=== PATIENT | female | born 1930 | race Caucasian/White ===

== ENCOUNTER 2017-12-01 11:48 | Inpatient (IN) | payer MEDICARE, OTHER ==
[~2017-12-01] VITALS: Ht 152.4 cm; Wt 63.2 kg
[2017-12-01 12:49] LABS: BASOPHILS # (AUTO) 0.02 x10^3/uL (0-0.1); BASOPHILS % (AUTO) 0 % (0-1); EOSINOPHILS % (AUTO) 0 % (1-7); LYMPHOCYTES # (AUTO) 0.78 x10^3/uL (1-3.4); LYMPHOCYTES % (AUTO) 5 % (22-44); MD NO; MEAN CORPUSCULAR HGB CONC 33.6 g/dL (32.4-35.8); MEAN CORPUSCULAR VOLUME 86.4 fL (80-100); MEAN PLATELET VOLUME 7.7 fL (7.4-10.4); MONOCYTES # (AUTO) 1.04 x10^3/uL (0.2-0.8); MONOCYTES % (AUTO) 7 % (2-9); NEUTROPHILS # (AUTO) 13.67 x10^3/uL (1.8-6.8); NEUTROPHILS % (AUTO) 88 % (42-75); PLATELET COUNT 225 x10^3/uL (130-400); RED BLOOD COUNT 4.96 x10^6/uL (3.82-5.3); RED CELL DISTRIBUTION WIDTH 14.4 % (9.6-15.2)
[2017-12-01] MEDS ORDERED: ONDANSETRON 2MG/ML, 2ML ONE (12:49)
[2017-12-01] MEDS ORDERED: MORPHINE SULFATE 4 MG/ML, 1ML ONE (12:50)
[2017-12-01] MEDS ORDERED: KETOROLAC 30 MG/1 ML ONE (12:50)
[2017-12-01 12:55] LABS: PROTHROMBIN TIME 10.4 Seconds (9.6-11.5)
[2017-12-01 12:58] LABS: ALANINE AMINOTRANSFERASE 18 U/L (12-78); ALBUMIN 3.4 g/dL (3.4-5.0); ANION GAP 5 mmol/L (5-15); CALCIUM 8.6 mg/dL (8.5-10.1); CHLORIDE 100 mmol/L (98-107); CREATININE 1.35 mg/dL (0.55-1.02)
[2017-12-01 13:00] LABS: ALKALINE PHOSPHATASE 74 U/L (45-117); BILIRUBIN,TOTAL 0.8 mg/dL (0.2-1.0); TOTAL PROTEIN 7.7 g/dL (6.4-8.2)
[2017-12-01] MEDS ORDERED: SODIUM CHLORIDE FLUSH 10ML SYR IVF ONE (13:00)
[2017-12-01] MEDS ORDERED: BENA1TAB11 PO (13:35)
[2017-12-01] MEDS ORDERED: SODIUM CHLORIDE 0.9% 1,000ML IVBOLUS ONE (14:00)
[2017-12-01] MEDS ORDERED: AMPICILLIN/SULBACTAM 3 GM in SODIUM CHLORIDE 0.9% 100 ML IV ONE (14:30)
[2017-12-01] MEDS ORDERED: POLYETHYLENE GLYCOL 17 GM PACKET PO PRN (15:00)
[2017-12-01] MEDS ORDERED: ONDANSETRON ODT 4 MG PO PRN (15:00)
[2017-12-01] MEDS ORDERED: VANCOMYCIN PER PHARMACY MC PRN (15:00)
[2017-12-01] MEDS ORDERED: ACETAMINOPHEN 325 MG TABLET PO PRN (15:00)
[2017-12-01] MEDS ORDERED: DOCUSATE 100 MG CAPSULE PO PRN (15:00)
[2017-12-01] MEDS: AMPICILLIN/SULBACTAM 3 GM in SODIUM CHLORIDE 0.9% 100 ML IV SCH (15:10)
[2017-12-01] MEDS ORDERED: ACETAMINOPHEN 325 MG TABLET ONE (15:18)
[2017-12-01 15:22] LABS: HCT (SEDRATE) 42.9 % (34.6-47.8)
[2017-12-01] MEDS ORDERED: BENAZEPRIL 20 MG TABLET PO SCH (16:05)
[2017-12-01] MEDS ORDERED: PHARMACOKINETIC MONITORING MC PRN (16:30)
[2017-12-01] MEDS ORDERED: PHARMACOKINETIC CONSULTATION MC ONE (16:30)
[2017-12-01] MEDS ORDERED: VANCOMYCIN 1,200 MG in SODIUM CHLORIDE 0.9% 250 ML IV SCH (16:30)
[2017-12-01] MEDS: ENOXAPARIN 30 MG/0.3 ML SQ SCH (16:58)
[2017-12-01 18:40] VITALS: BP 185/75
[2017-12-02 00:51] VITALS: BP 149/71
[2017-12-02] MEDS: AMPICILLIN/SULBACTAM 3 GM in SODIUM CHLORIDE 0.9% 100 ML IV SCH ×2 (03:18→18:27)
[2017-12-02 05:26] LABS: BASOPHILS % (AUTO) 0 % (0-1); EOSINOPHILS % (AUTO) 0 % (1-7); LYMPHOCYTES # (AUTO) 0.91 x10^3/uL (1-3.4); LYMPHOCYTES % (AUTO) 7 % (22-44); MD NO; MEAN CORPUSCULAR HEMOGLOBIN 28.7 pg (27.0-34.8); MEAN CORPUSCULAR HGB CONC 33.2 g/dL (32.4-35.8); MEAN CORPUSCULAR VOLUME 86.5 fL (80-100); MONOCYTES # (AUTO) 1.31 x10^3/uL (0.2-0.8); MONOCYTES % (AUTO) 10 % (2-9); NEUTROPHILS # (AUTO) 10.78 x10^3/uL (1.8-6.8); NEUTROPHILS % (AUTO) 83 % (42-75); PLATELET COUNT 179 x10^3/uL (130-400); RED BLOOD COUNT 4.22 x10^6/uL (3.82-5.3); RED CELL DISTRIBUTION WIDTH 14.5 % (9.6-15.2)
[2017-12-02 05:33] LABS: CHLORIDE 102 mmol/L (98-107)
[2017-12-02 05:40] LABS: ALANINE AMINOTRANSFERASE 15 U/L (12-78); ALBUMIN 2.6 g/dL (3.4-5.0); ALKALINE PHOSPHATASE 67 U/L (45-117); ANION GAP 8 mmol/L (5-15); BILIRUBIN,TOTAL 0.7 mg/dL (0.2-1.0); CREATININE 1.19 mg/dL (0.55-1.02); TOTAL PROTEIN 6.2 g/dL (6.4-8.2)
[2017-12-02 08:15] VITALS: BP 126/63
[2017-12-02] MEDS ORDERED: [UNRECOGNIZED DRUG - OTHER] PO SCH (09:00)
[2017-12-02] MEDS ORDERED: HYDROCHLOROTHIAZIDE PO SCH (09:00)
[2017-12-02] MEDS ORDERED: BENAZEPRIL PO SCH (09:00)
[2017-12-02] MEDS: BENAZEPRIL 20 MG TABLET PO SCH (10:00)
[2017-12-02] MEDS: HYDROCHLOROTHIAZIDE 25 MG TABLET PO SCH (10:00)
[2017-12-02 12:29] VITALS: BP 164/71
[2017-12-02] MEDS ORDERED: NS + 20MEQ KCL 1,000 ML IV SCH (15:00)
[2017-12-02] MEDS: ENOXAPARIN 30 MG/0.3 ML SQ SCH (16:00)
[2017-12-02] MEDS ORDERED: GADOBUTROL 7.5 MMOL/7.5 ML PFS ONE (17:34)
[2017-12-02 20:52] VITALS: BP 216/70
[2017-12-03 01:08] VITALS: BP 165/82
[2017-12-03] MEDS: AMPICILLIN/SULBACTAM 3 GM in SODIUM CHLORIDE 0.9% 100 ML IV SCH ×2 (03:15→16:27)
[2017-12-03 05:41] LABS: BASOPHILS # (AUTO) 0.03 x10^3/uL (0-0.1); BASOPHILS % (AUTO) 0 % (0-1); EOSINOPHILS # (AUTO) 0.09 x10^3/uL (0-0.4); EOSINOPHILS % (AUTO) 1 % (1-7); LYMPHOCYTES # (AUTO) 1.06 x10^3/uL (1-3.4); LYMPHOCYTES % (AUTO) 13 % (22-44); MD NO; MEAN CORPUSCULAR HGB CONC 33.6 g/dL (32.4-35.8); MEAN CORPUSCULAR VOLUME 86.2 fL (80-100); MONOCYTES # (AUTO) 0.95 x10^3/uL (0.2-0.8); MONOCYTES % (AUTO) 12 % (2-9); NEUTROPHILS # (AUTO) 5.89 x10^3/uL (1.8-6.8); NEUTROPHILS % (AUTO) 73 % (42-75); PLATELET COUNT 157 x10^3/uL (130-400); RED BLOOD COUNT 4.06 x10^6/uL (3.82-5.3); RED CELL DISTRIBUTION WIDTH 14.6 % (9.6-15.2)
[2017-12-03 05:51] LABS: ANION GAP 7 mmol/L (5-15); CALCIUM 8.2 mg/dL (8.5-10.1); CHLORIDE 101 mmol/L (98-107)
[2017-12-03 05:53] LABS: CREATININE 0.81 mg/dL (0.55-1.02)
[2017-12-03 07:46] VITALS: BP 186/83
[2017-12-03] MEDS: HYDROCHLOROTHIAZIDE 25 MG TABLET PO SCH (09:26)
[2017-12-03] MEDS: BENAZEPRIL 20 MG TABLET PO SCH (09:27)
[2017-12-03] MEDS ORDERED: hydrALAzine 20 MG/ML, 1ML IV PRN ×2 (14:00→17:30)
[2017-12-03] MEDS ORDERED: ENALAPRILAT 1.25 MG/ML, 2ML IV PRN (14:00)
[2017-12-03 15:08] VITALS: BP 162/74
[2017-12-03] MEDS: ENOXAPARIN 30 MG/0.3 ML SQ SCH (16:00)
[2017-12-03] MEDS ORDERED: FENTANYL PF 250 MCG/5ML ONE (17:13)
[2017-12-03] MEDS ORDERED: MIDAZOLAM 1 MG/ML, 2ML ONE (17:13)
[2017-12-03] MEDS ORDERED: PROPOFOL 10 MG/ML, 20ML ONE (17:14)
[2017-12-03] MEDS ORDERED: PIPERACILLIN/TAZO 3.375 GM VIAL ONE (17:25)
[2017-12-03] MEDS ORDERED: LABETALOL 5MG/ML, 20ML IV PRN (17:30)
[2017-12-03] MEDS ORDERED: FENTANYL PF 100 MCG/2ML IV PRN (17:30)
[2017-12-03] MEDS ORDERED: OXYcodone 5 MG/5 ML ORAL.SOL UDC PO PRN (17:30)
[2017-12-03] MEDS ORDERED: PROMETHAZINE 25 MG/ML, 1ML IV PRN (17:30)
[2017-12-03] MEDS ORDERED: HYDROmorphone 1 MG/ML, 1ML IV PRN (17:30)
[2017-12-03] MEDS ORDERED: MEPERIDINE/PF 25MG/0.5ML IVPush PRN (17:30)
[2017-12-03] MEDS ORDERED: ACETAMINOPHEN 325 MG TABLET PO PRN (17:30)
[2017-12-03] MEDS ORDERED: ONDANSETRON 2MG/ML, 2ML IVPush PRN (17:30)
[2017-12-03] MEDS ORDERED: morphine SULFATE 10 MG/ML, 1ML IV PRN (17:30)
[2017-12-03] MEDS ORDERED: PROMETHAZINE 12.5 MG SUPP PR PRN (17:30)
[2017-12-03] MEDS ORDERED: DEXAMETHASONE 4 MG/ML, 1ML ONE ×2 (17:40)
[2017-12-03] MEDS ORDERED: ONDANSETRON 2MG/ML, 2ML ONE (17:40)
[2017-12-03] MEDS ORDERED: OXYcodone 5 MG/5 ML ORAL.SOL UDC ONE (18:33)
[2017-12-03 19:00] VITALS: BP 260/77
[2017-12-03] MEDS: VANCOMYCIN 1,200 MG in SODIUM CHLORIDE 0.9% 250 ML IV SCH (19:35)
[2017-12-04 01:30] VITALS: BP 149/69
[2017-12-04] MEDS: AMPICILLIN/SULBACTAM 3 GM in SODIUM CHLORIDE 0.9% 100 ML IV SCH ×2 (03:39→15:04)
[2017-12-04 07:48] VITALS: BP 163/79
[2017-12-04] MEDS: HYDROCHLOROTHIAZIDE 25 MG TABLET PO SCH (08:03)
[2017-12-04] MEDS: BENAZEPRIL 20 MG TABLET PO SCH (08:03)
[2017-12-04 13:11] VITALS: BP 170/68
[2017-12-04] MEDS: ENOXAPARIN 30 MG/0.3 ML SQ SCH (16:00)
[2017-12-04 21:23] VITALS: BP 177/78
[2017-12-05 02:00] VITALS: BP 131/60
[2017-12-05] MEDS: AMPICILLIN/SULBACTAM 3 GM in SODIUM CHLORIDE 0.9% 100 ML IV SCH ×2 (03:09→16:29)
[2017-12-05 05:31] LABS: BASOPHILS # (AUTO) 0.02 x10^3/uL (0-0.1); BASOPHILS % (AUTO) 0 % (0-1); EOSINOPHILS # (AUTO) 0.03 x10^3/uL (0-0.4); EOSINOPHILS % (AUTO) 0 % (1-7); LYMPHOCYTES # (AUTO) 1.45 x10^3/uL (1-3.4); LYMPHOCYTES % (AUTO) 19 % (22-44); MD NO; MEAN CORPUSCULAR HEMOGLOBIN 28.9 pg (27.0-34.8); MEAN CORPUSCULAR HGB CONC 33.1 g/dL (32.4-35.8); MEAN CORPUSCULAR VOLUME 87.3 fL (80-100); MONOCYTES # (AUTO) 0.76 x10^3/uL (0.2-0.8); MONOCYTES % (AUTO) 10 % (2-9); NEUTROPHILS # (AUTO) 5.24 x10^3/uL (1.8-6.8); NEUTROPHILS % (AUTO) 70 % (42-75); PLATELET COUNT 214 x10^3/uL (130-400); RED BLOOD COUNT 3.95 x10^6/uL (3.82-5.3); RED CELL DISTRIBUTION WIDTH 14.5 % (9.6-15.2)
[2017-12-05 06:35] VITALS: BP 153/72
[2017-12-05] MEDS: HYDROCHLOROTHIAZIDE 25 MG TABLET PO SCH ×2 (09:00→13:06)
[2017-12-05] MEDS: BENAZEPRIL 20 MG TABLET PO ONE ×2 (11:00→13:06)
[2017-12-05 12:40] VITALS: BP 183/83
[2017-12-05] MEDS: ENOXAPARIN 30 MG/0.3 ML SQ SCH (16:00)
[2017-12-05] MEDS: VANCOMYCIN 1,200 MG in SODIUM CHLORIDE 0.9% 250 ML IV SCH (17:31)
[2017-12-05 19:31] VITALS: BP_SYST 214; BP_SYST 216; BP_DIAS 78; BP_DIAS 81
[2017-12-05] MEDS: LABETALOL 5MG/ML, 20ML IVPush PRN (19:43)
[2017-12-06 01:05] VITALS: BP 175/73
[2017-12-06] MEDS: AMPICILLIN/SULBACTAM 3 GM in SODIUM CHLORIDE 0.9% 100 ML IV SCH ×4 (03:18→19:36)
[2017-12-06 06:35] VITALS: BP 173/68
[2017-12-06] MEDS: HYDROCHLOROTHIAZIDE 25 MG TABLET PO SCH (09:16)
[2017-12-06] MEDS: BENAZEPRIL 20 MG TABLET PO SCH (09:16)
[2017-12-06 12:10] VITALS: BP 183/67
[2017-12-06] MEDS: ENOXAPARIN 30 MG/0.3 ML SQ SCH (15:00)
[2017-12-06 20:18] VITALS: BP 199/75
[2017-12-06] MEDS: LABETALOL 5MG/ML, 20ML IVPush PRN (20:42)
[2017-12-06 22:06] VITALS: BP 138/70
[2017-12-07 01:01] VITALS: BP 219/90
[2017-12-07] MEDS: LABETALOL 5MG/ML, 20ML IVPush PRN ×2 (02:03→08:45)
[2017-12-07] MEDS: AMPICILLIN/SULBACTAM 3 GM in SODIUM CHLORIDE 0.9% 100 ML IV SCH ×3 (02:03→14:00)
[2017-12-07 05:35] LABS: ALBUMIN 2.5 g/dL (3.4-5.0); ANION GAP 7 mmol/L (5-15); CALCIUM 8.4 mg/dL (8.5-10.1); CHLORIDE 100 mmol/L (98-107); CREATININE 0.99 mg/dL (0.55-1.02)
[2017-12-07] MEDS: HYDROCHLOROTHIAZIDE 25 MG TABLET PO SCH (07:43)
[2017-12-07] MEDS: BENAZEPRIL 20 MG TABLET PO SCH (07:43)
[2017-12-07 08:15] VITALS: BP_SYST 199; BP_DIAS 76; BP_DIAS 81
[2017-12-07 10:09] VITALS: BP 168/69
[2017-12-07] MEDS ORDERED: BENA20TA2 PO (12:46)
[2017-12-07] MEDS ORDERED: AMOX1TAB64 PO (12:46)
[2017-12-07] MEDS ORDERED: HYDR25TA6 PO (12:46)
[2017-12-07 14:36] VITALS: BP 187/69
[2017-12-07 14:38] VITALS: BP 171/74
[2017-12-07] MEDS: ENOXAPARIN 30 MG/0.3 ML SQ SCH (15:05)
[2017-12-07] MEDS: VANCOMYCIN 1,200 MG in SODIUM CHLORIDE 0.9% 250 ML IV SCH (17:00)
== END 2017-12-07 18:32 | disposition home health service (06) | DRG 854 ==
LOC: ED 14:12 → EDIP 14:13 → ED 15:03 → 3NE 15:35
PROVIDERS: ADMIT Family Medicine; ATTEND Hospitalist
PROC: 0JBQ0ZZ Excision of Right Foot Subcutaneous Tissue and Fascia, Open Approach (ICD-10-PCS; 2017-12-03)
PROC: 0J9Q0ZZ Drainage of Right Foot Subcutaneous Tissue and Fascia, Open Approach (ICD-10-PCS; principal; 2017-12-03 17:45)
DX: A41.9 Sepsis, unspecified organism (principal); L03.116 Cellulitis of left lower limb; N17.9 Acute kidney failure, unspecified; E44.0 Moderate protein-calorie malnutrition; L03.115 Cellulitis of right lower limb; E86.0 Dehydration; I12.9 Hypertensive chronic kidney disease with stage 1 through stage 4 chronic kidney disease, or unspecified chronic kidney disease; F41.9 Anxiety disorder, unspecified; I87.8 Other specified disorders of veins; N18.9 Chronic kidney disease, unspecified; M19.90 Unspecified osteoarthritis, unspecified site; R73.9 Hyperglycemia, unspecified; Z85.828 Personal history of other malignant neoplasm of skin; Z88.8 Allergy status to other drugs, medicaments and biological substances
CPT/HCPCS: 36415; 80048; 80053; 80202; 82040; 83605; 83735; 84100; 84145; 85025; 85610; 85651; 87040; 87070; 87075; 87205; 93005; 96360; 96372; A9585; J0295; J1100; J1650; J2250; J2405; J2543; J2704; J3010; J3370; J3480; J7030; J7050

== ENCOUNTER 2018-01-10 15:26 | Emergency (ER) | payer MEDICARE ==
[~2018-01-10] VITALS: Ht 160 cm; Wt 59.0 kg
[~2018-01-10 15:26] MED LIST: AMOX1TAB64 PO; BENA1TAB11 PO; BENA20TA2 PO; HYDR25TA6 PO
[2018-01-10] MEDS ORDERED: CARV6.2512 PO (15:38)
[2018-01-10] MEDS ORDERED: TERA5CAP3 PO (15:38)
[2018-01-10] MEDS ORDERED: HYDR12.53 PO (15:39)
[2018-01-10] MEDS ORDERED: CLON0.1T PO (15:40)
[2018-01-10 16:06] LABS: BASOPHILS # (AUTO) 0.03 x10^3/uL (0-0.1); BASOPHILS % (AUTO) 0 % (0-1); EOSINOPHILS # (AUTO) 0.12 x10^3/uL (0-0.4); EOSINOPHILS % (AUTO) 2 % (1-7); LYMPHOCYTES # (AUTO) 1.68 x10^3/uL (1-3.4); LYMPHOCYTES % (AUTO) 27 % (22-44); MD NO; MEAN CORPUSCULAR HEMOGLOBIN 28.3 pg (27.0-34.8); MEAN CORPUSCULAR HGB CONC 33.3 g/dL (32.4-35.8); MEAN CORPUSCULAR VOLUME 85.1 fL (80-100); MEAN PLATELET VOLUME 7.8 fL (7.4-10.4); MONOCYTES # (AUTO) 0.58 x10^3/uL (0.2-0.8); MONOCYTES % (AUTO) 9 % (2-9); NEUTROPHILS # (AUTO) 3.94 x10^3/uL (1.8-6.8); NEUTROPHILS % (AUTO) 62 % (42-75); PLATELET COUNT 208 x10^3/uL (130-400); RED BLOOD COUNT 4.51 x10^6/uL (3.82-5.3)
[2018-01-10 16:12] LABS: ALBUMIN 3.5 g/dL (3.4-5.0); ANION GAP 6 mmol/L (5-15); CALCIUM 8.9 mg/dL (8.5-10.1); CHLORIDE 102 mmol/L (98-107)
[2018-01-10 16:13] LABS: CREATININE 1.17 mg/dL (0.55-1.02)
[2018-01-10] MEDS ORDERED: CEFTRIAXONE 1,000 MG IM ONE (17:00)
[2018-01-10] MEDS ORDERED: CEFTRIAXONE 1,000 MG ONE (17:47)
[2018-01-10 18:07] VITALS: BP 196/78
== END 2018-01-10 18:28 | disposition home or self-care (01) ==
LOC: ED 18:22
DX: I10 Essential (primary) hypertension (principal); L03.115 Cellulitis of right lower limb
CPT/HCPCS: 36415; 73630; 80048; 82040; 85025; 96372; 99285; J0696

== ENCOUNTER 2018-02-01 09:59 | Day surgery (SDC) | payer MEDICARE ==
[~2018-02-01] VITALS: Ht 160 cm; Wt 61.6 kg
[~2018-02-01 09:59] MED LIST changes: +CARV6.2512 PO; +CLON0.1T PO; +HYDR12.53 PO; +TERA5CAP3 PO
[2018-02-01 10:29] VITALS: BP 163/72
[2018-02-01] MEDS ORDERED: LACTATED RINGERS 1,000 ML IV SCH (10:31)
[2018-02-01] MEDS ORDERED: ACETAMINOPHEN 500 MG TABLET PO ONE (11:00)
[2018-02-01] MEDS ORDERED: ONDANSETRON ODT 8 MG PO ONE (11:00)
[2018-02-01] MEDS ORDERED: BENA20TA2 PO (11:22)
[2018-02-01] MEDS ORDERED: MORPHINE SULFATE 4 MG/ML, 1ML IVPush PRN (12:30)
[2018-02-01] MEDS ORDERED: EPHEDRINE 50 MG/ML, 1ML IM PRN (12:30)
[2018-02-01] MEDS ORDERED: hydrALAzine 20 MG/ML, 1ML IV PRN (12:30)
[2018-02-01] MEDS ORDERED: LABETALOL 5MG/ML, 20ML IV PRN (12:30)
[2018-02-01] MEDS ORDERED: ALBUTEROL/IPRATROPIUM 2.5MG/0.5MG, 3 ML NPPB PRN (12:30)
[2018-02-01] MEDS ORDERED: MEPERIDINE/PF 25MG/0.5ML IVPush PRN (12:30)
[2018-02-01] MEDS ORDERED: MIDAZOLAM 1 MG/ML, 2ML IV PRN (12:30)
[2018-02-01] MEDS ORDERED: FENTANYL PF 100 MCG/2ML IV PRN (12:30)
[2018-02-01] MEDS ORDERED: PROMETHAZINE 25 MG/ML, 1ML IM PRN (12:30)
[2018-02-01] MEDS ORDERED: FENTANYL PF 100 MCG/2ML ONE (12:40)
[2018-02-01] MEDS ORDERED: CEFAZOLIN 1,000 MG ONE (13:04)
[2018-02-01] MEDS ORDERED: PROPOFOL 10 MG/ML, 20ML ONE (13:04)
[2018-02-01] MEDS ORDERED: DEXAMETHASONE 4 MG/ML, 1ML ONE (13:04)
[2018-02-01] MEDS ORDERED: hydrALAzine 20 MG/ML, 1ML ONE (13:28)
== END 2018-02-01 15:45 ==
LOC: OUT 09:59
PROVIDERS: ATTEND Orthopaedic Surgery
DX: S91.301A Unspecified open wound, right foot, initial encounter (principal); L98.8 Other specified disorders of the skin and subcutaneous tissue; X58.XXXA Exposure to other specified factors, initial encounter; Y93.89 Activity, other specified; Y92.89 Other specified places as the place of occurrence of the external cause; Y99.8 Other external cause status; I10 Essential (primary) hypertension; Z88.5 Allergy status to narcotic agent
CPT/HCPCS: 11042; 87070; 87075; 87176; 87205; J0360; J0690; J1100; J2704; J3010; J7120; Q0162

== ENCOUNTER → 2018-03-14 | Outpatient (CLI) | payer MEDICARE ==
[~2018-03-14] MED LIST changes: +GADOBUTROL 10 MMOL/10 ML PFS ONE
== END | disposition home or self-care (01) ==
LOC: CFH 14:49
PROVIDERS: ATTEND Orthopaedic Surgery
DX: L03.115 Cellulitis of right lower limb (principal); M86.8X7 Other osteomyelitis, ankle and foot; M19.071 Primary osteoarthritis, right ankle and foot; M79.81 Nontraumatic hematoma of soft tissue
CPT/HCPCS: 73720; A9585

== ENCOUNTER 2018-10-16 12:22 | Emergency (ER) | payer MEDICARE ==
[~2018-10-16] VITALS: Ht 154.9 cm; Wt 63.9 kg
[~2018-10-16 12:22] MED LIST changes: -BENA20TA2 PO; +BENA20TA54 PO; -CLON0.1T PO; +CLON0.1T22 PO; -GADOBUTROL 10 MMOL/10 ML PFS ONE; +HYDR12.517 PO; -HYDR12.53 PO
[2018-10-16 12:28] VITALS: BP 174/68
[2018-10-16 12:50] LABS: HCT (SEDRATE) 39.2 % (34.6-47.8)
[2018-10-16 12:51] LABS: BASOPHILS # (AUTO) 0.01 x10^3/uL (0-0.1); BASOPHILS % (AUTO) 0 % (0-1); EOSINOPHILS # (AUTO) 0.14 x10^3/uL (0-0.4); EOSINOPHILS % (AUTO) 2 % (1-7); LYMPHOCYTES # (AUTO) 1.54 x10^3/uL (1-3.4); LYMPHOCYTES % (AUTO) 19 % (22-44); MD NO; MEAN CORPUSCULAR HEMOGLOBIN 27.6 pg (27.0-34.8); MEAN CORPUSCULAR HGB CONC 32.4 g/dL (32.4-35.8); MEAN CORPUSCULAR VOLUME 85.3 fL (80-100); MEAN PLATELET VOLUME 7.8 fL (7.4-10.4); MONOCYTES # (AUTO) 0.82 x10^3/uL (0.2-0.8); MONOCYTES % (AUTO) 10 % (2-9); NEUTROPHILS # (AUTO) 5.58 x10^3/uL (1.8-6.8); NEUTROPHILS % (AUTO) 69 % (42-75); PLATELET COUNT 235 x10^3/uL (130-400); RED BLOOD COUNT 4.62 x10^6/uL (3.82-5.3); RED CELL DISTRIBUTION WIDTH 14.5 % (9.6-15.2)
[2018-10-16 13:03] LABS: ANION GAP 7 mmol/L (5-15); CALCIUM 8.8 mg/dL (8.5-10.1); CHLORIDE 102 mmol/L (98-107); CREATININE 0.89 mg/dL (0.55-1.02)
[2018-10-16] MEDS ORDERED: LIDODERM 5% PATCH TD ONE ×2 (13:22→13:30)
--- NOTE | 2018-10-16 13:27 | NUR ---
FAMILY AT BS.
== END 2018-10-16 14:13 | disposition home or self-care (01) ==
LOC: ED 13:32
DX: G89.29 Other chronic pain (principal); M79.671 Pain in right foot; M79.604 Pain in right leg; I10 Essential (primary) hypertension
CPT/HCPCS: 36415; 80048; 85025; 85651; 86140; 99284

== ENCOUNTER 2020-01-15 16:13 | Emergency (ER) | payer MEDICARE ==
[~2020-01-15] VITALS: Ht 160 cm; Wt 62.0 kg
[2020-01-15] MEDS ORDERED: SODIUM CHLORIDE FLUSH 10ML SYR IVF ONE (17:00)
[2020-01-15 17:20] LABS: BASOPHILS # (AUTO) 0.04 x10^3/uL (0-0.1); BASOPHILS % (AUTO) 1 % (0-1); EOSINOPHILS # (AUTO) 0.14 x10^3/uL (0-0.4); EOSINOPHILS % (AUTO) 2 % (1-7); LYMPHOCYTES # (AUTO) 1.05 x10^3/uL (1-3.4); LYMPHOCYTES % (AUTO) 15 % (22-44); MD NO; MEAN CORPUSCULAR HEMOGLOBIN 28.4 pg (27.0-34.8); MEAN CORPUSCULAR HGB CONC 33.2 g/dL (32.4-35.8); MEAN CORPUSCULAR VOLUME 85.6 fL (80-100); MEAN PLATELET VOLUME 7.8 fL (7.4-10.4); MONOCYTES # (AUTO) 0.67 x10^3/uL (0.2-0.8); MONOCYTES % (AUTO) 10 % (2-9); NEUTROPHILS # (AUTO) 4.98 x10^3/uL (1.8-6.8); NEUTROPHILS % (AUTO) 72 % (42-75); PLATELET COUNT 220 x10^3/uL (130-400); RED BLOOD COUNT 4.08 x10^6/uL (3.82-5.3); RED CELL DISTRIBUTION WIDTH 14.7 % (9.6-15.2)
[2020-01-15 17:33] LABS: ALANINE AMINOTRANSFERASE 15 U/L (12-78); ALBUMIN 3.2 g/dL (3.4-5.0); ANION GAP 5 mmol/L (5-15); CALCIUM 8.7 mg/dL (8.5-10.1); CHLORIDE 108 mmol/L (98-107); CREATININE 0.94 mg/dL (0.55-1.02)
--- NOTE | 2020-01-15 17:33 | NUR ---
ASSIST RN: PT AMBULATORY TO BATHROOM WITH STAND BY ASSIST. UA COLLECTED.
[2020-01-15 17:35] LABS: ALKALINE PHOSPHATASE 128 U/L (45-117); BILIRUBIN,TOTAL 0.4 mg/dL (0.2-1.0); TOTAL PROTEIN 6.9 g/dL (6.4-8.2)
[2020-01-15 17:54] LABS: CULTURE INDICATED? YES; MICROSCOPIC AUTO
[2020-01-15] MEDS ORDERED: OMNIPAQUE 350 MG/ML, 100ML BOTTLE ONE (18:07)
--- NOTE | 2020-01-15 18:13 | NUR ---
SBA to the restroom.
--- NOTE | 2020-01-15 19:04 | NUR ---
MD Joshua at bedside.
[2020-01-15] MEDS ORDERED: CEFTRIAXONE PMX 1GM/50ML 50 ML ONE (19:58)
[2020-01-15] MEDS ORDERED: CEFTRIAXONE PMX 1GM/50ML 50 ML IV ONE (20:00)
--- NOTE | 2020-01-15 20:02 | NUR ---
Swati gresham. No other needs.
[2020-01-15 20:45] VITALS: BP 189/96
--- NOTE | 2020-01-15 20:55 | NUR ---
Patient/Caregiver given discharge instructions and they have confirmed that they understand the instructions. Patient ambulatory with steady gait. Taken out in wheelchair.
== END 2020-01-15 20:56 | disposition home or self-care (01) ==
LOC: ED 17:22
DX: N30.00 Acute cystitis without hematuria (principal); I10 Essential (primary) hypertension; Z88.6 Allergy status to analgesic agent
CPT/HCPCS: 36415; 74177; 80053; 81001; 83690; 85025; 87086; 96365; 99285; J0696; Q9967

== ENCOUNTER 2020-02-20 08:48 | Outpatient (CLI) | payer MEDICARE ==
[2020-02-20] MEDS ORDERED: LIDOCAINE 1%, 10ML ONE ×2 (09:06→09:55)
== END 2020-02-20 23:59 | disposition home or self-care (01) ==
LOC: RAD 08:48 → EDSTATUS 09:00 → RAD 23:59
PROVIDERS: ATTEND Family Medicine
DX: R19.09 Other intra-abdominal and pelvic swelling, mass and lump (principal)
CPT/HCPCS: 20206; 38505; 77012; 88305